=== PATIENT | male | born 1985 | race African-American/Black ===

== ENCOUNTER 2020-09-16 02:38 | Emergency (ER) | payer SELFPAY ==
[~2020-09-16] VITALS: Ht 182.9 cm; Wt 76.8 kg
[2020-09-16] MEDS ORDERED: MORPHINE SULFATE 4 MG/ML, 1ML ONE ×2 (02:57→03:18)
[2020-09-16] MEDS ORDERED: ONDANSETRON 2MG/ML, 2ML ONE (02:57)
[2020-09-16] MEDS ORDERED: ONDANSETRON 2MG/ML, 2ML IVPush ONE (03:00)
[2020-09-16] MEDS: MORPHINE SULFATE 4 MG/ML, 1ML IVPush PRN ×2 (03:00→03:21)
--- NOTE | 2020-09-16 03:04 | NUR ---
PT PRESENTS TO ER WITH ABD PAIN IN LOWER RIGHT QUAD. PT HAD N/V AT HOME BEFORE ARRIVAL WHEN THIS STARTED AROUND MIDNIGHT. PT HOOKED TO MONITORS AND IN GOWN.
--- NOTE | 2020-09-16 03:05 | NUR ---
PT GIVEN MEDICATIONS WITH NO RELIEF
[2020-09-16 03:21] LABS: ALANINE AMINOTRANSFERASE 49 U/L (12-78); ANION GAP 5 mmol/L (5-15); CHLORIDE 109 mmol/L (98-107); CREATININE 1.15 mg/dL (0.7-1.3)
[2020-09-16 03:23] LABS: ALKALINE PHOSPHATASE 95 U/L (45-117); BILIRUBIN,TOTAL 0.7 mg/dL (0.2-1.0); TOTAL PROTEIN 7.8 g/dL (6.4-8.2)
--- NOTE | 2020-09-16 03:29 | NUR ---
PT TO IMAGING AT THIS TIME
[2020-09-16] MEDS ORDERED: OMNIPAQUE 350 MG/ML, 100ML BOTTLE ONE ×2 (03:42→03:56)
--- NOTE | 2020-09-16 03:46 | NUR ---
PT BACK FOR CT, GIVEN URINAL FOR URINE SAMPLE. PT STATES THE PAIN MEDS HELPED SOME, PAIN NOW AT A 5/10.
[2020-09-16] MEDS ORDERED: HYDROmorphone 1 MG/ML, 1ML INJ IV ONE (04:00)
[2020-09-16] MEDS ORDERED: PIPERACILLIN/TAZO 3.375 GM in DEXTROSE 5% 50 ML IVPB ONE (04:00)
[2020-09-16] MEDS ORDERED: HYDROmorphone 1 MG/ML, 1ML INJ ONE (04:10)
[2020-09-16 04:28] LABS: MICROSCOPIC NOT IND
[2020-09-16 04:48] LABS: BASOPHILS % (AUTO) 0 % (0-1); EOSINOPHILS % (AUTO) 1 % (1-7); LYMPHOCYTES % (AUTO) 9 % (22-44); MEAN CORPUSCULAR HEMOGLOBIN 30.2 pg (27.5-34.5); MEAN CORPUSCULAR HGB CONC 33.4 g/dL (33.2-36.2); MEAN PLATELET VOLUME 8.4 fL (7.4-10.4); MONOCYTES % (AUTO) 4 % (2-9); NEUTROPHILS % (AUTO) 86 % (42-75); PLATELET COUNT 191 x10^3/uL (130-400); RED BLOOD COUNT 4.62 x10^6/uL (4.38-5.82)
[2020-09-16 04:51] LABS: MD NO
--- NOTE | 2020-09-16 04:51 | NUR ---
PT RESTING COMFORTABLY ON GURNEY, DENIES NEEDS AT THIS TIME
[2020-09-16 05:56] VITALS: BP 143/71
--- NOTE | 2020-09-16 05:56 | NUR ---
Task RN: Discharge instructions given. All questions and concerns addressed. Patient ambulatory with a steady gait. Belongings with patient.
== END 2020-09-16 05:58 | disposition home or self-care (01) ==
LOC: ED 04:43
DX: R10.84 Generalized abdominal pain (principal); R11.2 Nausea with vomiting, unspecified; F17.210 Nicotine dependence, cigarettes, uncomplicated
CPT/HCPCS: 36415; 74177; 80053; 81003; 83690; 85025; 87040; 96365; 96375; 99285; 99406; J1170; J2270; J2405; J2543; Q9967

== ENCOUNTER 2020-12-14 01:41 | Emergency (ER) | payer OTHER ==
[~2020-12-14] VITALS: Ht 182.9 cm; Wt 84.1 kg
[2020-12-14] MEDS ORDERED: ONDANSETRON 2MG/ML, 2ML ONE (02:13)
[2020-12-14] MEDS ORDERED: MORPHINE SULFATE 4 MG/ML, 1ML ONE ×2 (02:13→02:37)
[2020-12-14 02:14] LABS: BASOPHILS % (AUTO) 1 % (0-1); EOSINOPHILS % (AUTO) 1 % (1-7); LYMPHOCYTES % (AUTO) 35 % (22-44); MEAN CORPUSCULAR HEMOGLOBIN 30.8 pg (27.5-34.5); MEAN CORPUSCULAR HGB CONC 34.3 g/dL (33.2-36.2); MEAN PLATELET VOLUME 8.6 fL (7.4-10.4); MONOCYTES % (AUTO) 5 % (2-9); NEUTROPHILS % (AUTO) 59 % (42-75); PLATELET COUNT 183 x10^3/uL (130-400); RED BLOOD COUNT 4.74 x10^6/uL (4.38-5.82); RED CELL DISTRIBUTION WIDTH 13.4 % (9.4-14.8)
[2020-12-14 02:18] LABS: ALBUMIN 3.8 g/dL (3.4-5.0); ANION GAP 5 mmol/L (5-15); CHLORIDE 108 mmol/L (98-107); CREATININE 1.02 mg/dL (0.7-1.3)
[2020-12-14] MEDS: MORPHINE SULFATE 4 MG/ML, 1ML IVPush PRN ×2 (02:20→02:38)
--- NOTE | 2020-12-14 02:22 | NUR ---
PT PRESENTS TO THE ER FOR AN INGUINAL HERNIA, PT STATES HE HAS HAD THIS HERNIA FOR A LONG TIME AND WHEN IT POPS OUT HE HAS EXCRUTIATING PAIN, PT DOES PRESENT WITH A BULGE ON HIS LEFT INGUINAL REGION, PT MEDICATED PER MAR FOR PAIN
[2020-12-14] MEDS ORDERED: ONDANSETRON 2MG/ML, 2ML IVPush ONE (02:30)
--- NOTE | 2020-12-14 03:39 | NUR ---
PT ASLEEP IN BED, ALL NEEDS IN REACH, CALL LIGHT IN REACH, NAD AT THIS TIME, PT NO LONGER IN PAIN, PT RESTING COMFORTABLY
[2020-12-14 04:06] LABS: MICROSCOPIC NOT IND
[2020-12-14 04:55] VITALS: BP 109/51
== END 2020-12-14 04:57 | disposition home or self-care (01) ==
LOC: ED 04:00
DX: K40.91 Unilateral inguinal hernia, without obstruction or gangrene, recurrent (principal); R10.2 Pelvic and perineal pain
CPT/HCPCS: 36415; 76870; 80048; 81003; 82040; 85025; 96374; 96375; 99284; J2270; J2405